=== PATIENT | female | born 1960 | race Caucasian/White ===

== ENCOUNTER → 2024-03-12 07:27 | Outpatient (REF) | payer BC, SELFPAY | LOC: WDC 07:27 | PROVIDERS: ATTENDING PHYSICIAN Nurse Practitioner Adult Health | DX: Z12.31 Encounter for screening mammogram for malignant neoplasm of breast (principal) | CPT/HCPCS: 77063; 77067 ==

== ENCOUNTER 2024-10-26 13:26 | Emergency (ER) | payer BC, SELFPAY ==
[2024-10-26 13:43] VITALS: BP 154/110
--- NOTE | 2024-10-26 15:29 | ED.MUSCINJ ---
HPI-Injury
General
Chief Complaint: Musculo-Skeletal Complaint
Source: patient
Exam Limitations: none
Time Seen by Provider: 10/26/24 15:05
History of Present Illness-Injury
Initial Injury comments:
64-year-old female eyrlw-pvil-edrbukcb presents complaining of left rib and left shoulder pain after falling while hiking. She fell directly on her arm. She is unable to move her arm. She also now notes pain to the left ribs. She denies
shortness of breath. She did not hit her head. No other complaints
Phy Exam
Physical Exam
Physical Exam:
General: Well-appearing female no acute respiratory distress HEENT: Normocephalic atraumatic
Heart: Regular rate and rhythm no murmurs
Lungs: Clear no wheeze
Musculoskeletal exam: The patient's left shoulder is tender to palpation. No deformity she is slightly swollen the elbow is nontender. She is tender over the left ribs
Extremities: No cyanosis
Injury Course
Orders/Labs/Results
Orders:
Orders
10/26/24 13:47
CR Shoulder, Trauma - Left Urgent
Comment:
Reason For Exam: fall, left shoulder/left upper arm pain
Humerus, Left 2 Views [CR Humerus - Left Min 2 Views*] Urgent
Comment:
Reason For Exam: fall, left shoulder/left upper arm pain
10/26/24 15:24
Acetaminophen [Tylenol] 1,000 mg PO NOW STA
CR Ribs-left 3 Vw W/pa Chest Urgent
Comment:
Reason For Exam: fall, left rib pain
MDM/Problems Addressed
Differential Diagnosis Includes:
Left shoulder and left rib pain after a fall. Consider fracture versus dislocation versus pneumothorax
I personally visualized x-rays of the left humerus and shoulder which demonstrate a fracture of the proximal humerus of the surgical neck and greater tuberosity. There is no dislocation. A sling will be provided. Tylenol ordered. X-rays of the
ribs are pending
*Critical Care Note
Total Time (30-74mins, 75-104mins- exclusive of procedures): Not Applicable
Update Note
Update Note:
Left rib series personally visualized no obvious acute fracture or pneumothorax. Patient given a sling for her left shoulder fracture. Advise follow-up with orthopedics
ED Attending Note
-
Portions of this chart may have been created with voice recognition software.� Occasional wrong word or��sound alike� substitutions may have occurred due to the inherent limitations of voice recognition software.
Discharge Plan
Departure
Patient Disposition: Home (Routine Discharge)
Date of Disposition: 10/26/24
Time of Disposition: 17:51
Patient with high blood pressure during this ER visit?: No
Discharge Problem:
Fracture of proximal end of humerus
Instructions: Muscle and Bone Pain (DC)
Prescriptions:
No Action
organ concentrates [Adrenal] 80 MG capsule
80 mg PO DAILY
red yeast rice 600 MG capsule
600 mg PO DAILY
Referrals:
Juliana Dalal MD [Family Provider] -
Reinaldo Mack MD [Active] -
Activity Restrictions/Additional Instructions:
Use sling for support. Continue with naproxen or Tylenol for pain. Follow-up with orthopedics for further evaluation
Interventions
Interventions:
*Risk Screen - Suicide Last Done: 10/26/24 14:53
*General Assessment Last Done: 10/26/24 14:53
*Neglect/Abuse Screening Last Done: 10/26/24 14:53
ED- Fall Risk Assessment Last Done: 10/26/24 14:53
*ED COVID-19 Vaccine History Last Done: 10/26/24 14:53
ED-Musculoskeletal Assessment Last Done: 10/26/24 14:53
Discharge Date and Time
Print Language: EQUATORIAL GUINEAN
[2024-10-26] MEDS: TYLENOL 1000 MG PO (15:31)
[2024-10-26 16:00] VITALS: BP 142/98
== END 2024-10-26 18:04 | disposition home or self-care (01) ==
LOC: EMR 13:26
PROVIDERS: EMERGENCY PHYSICIAN Emergency Medicine; FAMILY PHYSICIAN Student in an Organized Health Care Education/Training Program
DX: S42.295A Other nondisplaced fracture of upper end of left humerus, initial encounter for closed fracture (principal); R07.81 Pleurodynia; W19.XXXA Unspecified fall, initial encounter
CPT/HCPCS: 99284; 71101; 73030; 73060

== ENCOUNTER 2025-03-20 16:23 | Inpatient (IN) | payer BC, SELFPAY ==
[2025-03-20 12:03] VITALS: BP 155/88
--- NOTE | 2025-03-20 12:22 | ED.GENMED ---
History of Present Illness
General
Chief Complaint: Fall
Source: patient
Exam Limitations: none
Time Seen by Provider: 03/20/25 12:07
History of Present Illness
History of Present Illness:
64yoF with a history of hypothyroidism presenting with her for evaluation after a fall about an hour ago. Patient was at work and was making a phone call in the parking lot. She reports tripping over her feet and landing on her left hip.
There was no head strike or LOC. She was able to get up after the fall. She is presenting with pain in her left hip which feels like a 'charley horse.' She sustained some abrasions to the L elbow and L knee during the fall. Tetanus vaccine is
reportedly up to date.
Phy Exam
General Physical Exam
General Presentation: well appearing and no apparent distress
General age: appears stated age
General Skin: warm and dry
General Habitus: normal
General Mental: alert
ENT Exam
ENT Exam: normocephalic
Pulmonary Exam
Pulmonary Exam: no respiratory distress
Neurological Exam
Neurological Exam: alert
[place] Coma Scale
Eye Opening: Spontaneous
Verbal Response: Oriented
Motor Response: Obeys Commands
GCS Total Score: 15
Musculoskeletal Exam
Musculoskeletal Exam: other (L hip: Normal to inspection. No deformity, swelling, ecchymosis. No tenderness to palpation of the joint. Able to flex completely. Extension elicits pain. 2+ DP pulse and sensation intact.)
Skin Exam
Skin Exam: normal color, warm/dry and other (Abrasions to L elbow and L knee)
Psychiatric Exam
Psychiatric Exam: normal mood/affect
Course
Orders/Labs/Results
Orders:
Orders
03/20/25 12:20
CR Femur - Left Min 2 Vw Urgent
Comment:
Reason For Exam: L hip pain, fall
Pelvis, 1 or 2 Views CR [CR Pelvis - 1 Or 2 Views ] Urgent
Comment:
Reason For Exam: L hip pain, fall
03/20/25 14:36
Complete Blood Count/With Diff Urgent
Comprehensive Metabolic Panel Urgent
03/20/25 15:06
CT Pelvis W/o Iv Contrast Urgent
Comment:
Reason For Exam: L hip fracture, ortho request
03/20/25 15:15
ECG [Electrocardiogram (*1)] Urgent
Reason for Study: PreOp
03/20/25 15:34
Admit/Transfer Patient As Directed
Co-Sign Provider:
Level of Care: Inpatient admission
Assign to:: Medical/Surgical
Physician / Group: Rylee
Diagnosis: Left Hip Fracture
Reason for Hospitalization: Hip Fracture
Expected length of stay greater than two midnights?: Yes
ELOS- Estimated Length of Stay in days: 3
I certify the patient meets the requirements for IP care: Yes
PRN Pain Medication Management As Directed
May give lesser potent ordered pain med per pt: Yes
preference::
Protocol:: Medication orders for pain may be administered in a
manner that supports deferring to patient preference
when the pt is:
- Requesting an ordered lesser potent pain medication.
Least to most potent pain medications are defined
as: acetaminophen < NSAID < tramadol < opioids
(morphine, oxycodone, hydromorphone).
- Requesting a lesser dose of the same medication IF
ORDERED.
- Requesting a less intrusive route of administration
if both routes are prescribed by the provider (PO <
IV).
03/20/25 15:36
Code Status As Directed
Resuscitation Status: Full Code
Abnormal Lab Results
03/20/25
14:36
WBC 11.1 H 10^3/uL
(4.8-10.8)
Absolute Neuts (auto) 9.0 H 10^3/uL
(1.4-6.5)
Neutrophils % 80.9 H %
(42.2-75.2)
Lymphocytes % 13.5 L %
(20.5-51.1)
03/20/25 14:36
03/20/25 14:36
Vital Signs
Initial and Last Documented VS:
Initial Vital Signs
Temp Pulse Resp BP Pulse Ox
98.4 F 78 18 155/88 100
03/20/25 12:03 03/20/25 12:03 03/20/25 12:03 03/20/25 12:03 03/20/25 12:03
Last Documented Vital Signs
Temp Pulse Resp BP Pulse Ox
98.4 F 78 18 155/88 100
03/20/25 12:03 03/20/25 12:03 03/20/25 12:03 03/20/25 12:03 03/20/25 12:03
MDM/Problems Addressed
Differential Diagnosis Includes:
64yoF here with L hip pain after a mechanical fall. No deformity or swelling on exam. ROM is preserved. LLE is neurovascularly intact. Differential diagnosis includes: soft tissue injury/contusion, fracture, dislocation
X-rays of pelvis and L femur obtained. Imaging reveals a subcapital proximal left femur fracture. Orthopedics notified and patient admitted to the hospitalist service for further management.
*Critical Care Note
Total Time (30-74mins, 75-104mins- exclusive of procedures): Not Applicable
ED Attending Note
-
Portions of this chart may have been created with voice recognition software.� Occasional wrong word or��sound alike� substitutions may have occurred due to the inherent limitations of voice recognition software.
Discharge Plan
Departure
Patient Disposition: Admit
Date of Disposition: 03/20/25
Time of Disposition: 15:07
Presentation/result/management discussed w/ accepting MD/DO: Hospitalist
Discharge Problem:
Closed fracture of left hip
Prescriptions:
No Action
Metamucil Packet
1 packet PO DAILYPRN PRN (Reason: constipation)
omeprazole 40 mg Capsule,Delayed Release(Dr/Ec)
40 mg PO HS
levothyroxine [Synthroid] 100 mcg Tablet
100 mcg PO DAILY
alprazolam [Xanax] 0.25 mg Tablet
0.25 mg PO BIDPRN PRN (Reason: anxiety)
Glucosamine Chondroitin 550-30-1 mg Capsule
1 cap PO DAILY
Referrals:
Juliana Dalal MD [Family Provider] -
Interventions
Interventions:
*Risk Screen - Suicide Last Done: 03/20/25 12:03
*General Assessment Last Done: 03/20/25 12:03
*Neglect/Abuse Screening Last Done: 03/20/25 12:03
*ED- Fall Risk Assessment Last Done: 03/20/25 12:20
*ED COVID-19 Vaccine History Last Done: 03/20/25 12:20
ED-Musculoskeletal Assessment Last Done: 03/20/25 12:20
ED- Neurological Assessment Last Done: 03/20/25 12:20
ED-Skin Assessment Last Done: 03/20/25 12:20
Discharge Date and Time
Print Language: PALESTINIAN
[2025-03-20 14:50] LABS: % Basophils 0.4 % (0-2); % Eosinophils 0.1 % (0-6); % Immature Granulocytes 0.3 % (0-0.5); % Lymphocytes 13.5 % (20.5-51.1); % Monocytes 4.8 % (1.7-9.3); % Neutrophils 80.9 % (42.2-75.2); Absolute Lymphocytes 1.5 10^3/uL (1.2-3.4); Absolute Monocytes 0.5 10^3/uL (0.1-0.6); Hematocrit 42.6 % (37.0-47.0); Hemoglobin 14.6 g/dL (12.0-16.0); Mean Corp Hgb Conc. 34.3 g/dL (33.0-37.0); Mean Corpuscular Volume 87.5 fL (81.0-99.0); Nucleated Red Blood Cells % 0 %; Platelet Count 216 10^3/uL (130-400); Red Blood Cell Count 4.87 10^6/uL (4.20-5.40); Red Cell Dist. Width 12.6 % (11.5-14.5); White Blood Cell Count 11.1 10^3/uL (4.8-10.8)
[2025-03-20 15:01] LABS: ALT (SGPT) 31 U/L (0-35); AST (SGOT) 32 U/L (14-36); Albumin 4.4 g/dl (3.5-5.0); Alkaline Phosphatase 82 U/L (38-126); Blood Urea Nitrogen 13 mg/dl (7-17); Carbon Dioxide 27 mmol/L (22-30); Chloride 107 mmol/L (98-107); Glucose 89 mg/dl (70-99); Potassium 4.3 mmol/L (3.5-5.1); Sodium 141 mmol/L (135-145); Total Bilirubin 1.1 mg/dl (0.2-1.3); Total Protein 7.6 g/dl (6.3-8.2); eGFR > 60.00
--- NOTE | 2025-03-20 15:15 | HPS.HSE ---
Family Physician
-
Family Physician: Juliana Dlaal MD
Chief Complaint
-
Fall with Left Hip Pain
History of Present Illness
Patient is a 64 y/o female past medical history of hypothyroidism who presents with left hip pain following a fall. Patient reports back in October she tripped on a root while walking and fell landing on her left side. At that time she had severe
left shoulder pain and was found to have a proximal left humerus fracture which was managed conservatively. Patient reports she enjoys walking but since resuming her spring walking program she has been experiencing left hip pain. Today while
walking in the parking lot she states her leg just gave out and she fell. She denies chest pain, palpitations, shortness of breath or dizziness prior to the fall; and states she did not hit her head.
Medical History
Past Medical History
Past Medical History: Reports Other
Additional Past Medical History:
Hypothyroidism
GERD
Past Surgical History: Reports Other
Social History
Tobacco: Non-smoker
Alcohol: Occasional
Family History
Family History: Not pertinent
Allergies / Home Medications
Allergies reflects when Allergies were last updated in [employer].
Home Medications with original date entered in [employer]
Allergy/Medication List:
Allergies
Allergy/AdvReac Type Severity Reaction Status Date / Time
No Known Allergies Allergy Verified 03/20/25 12:03
Home Medications
alprazolam 0.25 mg tablet (Xanax) 0.25 mg PO BIDPRN PRN anxiety 03/20/25
glucosamine sulf dipot chlr,msm,chond 550 mg-C 30 mg-el 1 mg capsule (Glucosamine Chondroitin) 1 cap PO DAILY 03/20/25
levothyroxine 100 mcg tablet (Synthroid) 100 mcg PO DAILY 03/20/25
omeprazole 40 mg capsule,delayed release 40 mg PO HS 03/20/25
psyllium 1 packet PO DAILYPRN PRN constipation 03/20/25
Review of Systems
-
A 12 point ROS was completed and negative except as noted: Yes
Respiratory: Denies Cough or Trouble Breathing
Cardiac: Denies Chest Pain or Palpitations
Physical Exam
Vital Signs
Vital Signs
Temp Pulse Resp BP Pulse Ox
98.4 F 78 18 155/88 100
03/20/25 12:03 03/20/25 12:03 03/20/25 12:03 03/20/25 12:03 03/20/25 12:03
Physical Exam
General: Comfortable and Conversant
HEENT: Anicteric and Moist mucous membranes
Respiratory: Clear and Non Labored Respirations
Cardiac: S1/S2 and Regular Rhythm
GI: Soft and Non Tender
Rectal: Deferred by Provider
Musculoskeletal: No Clubbing and No Cyanosis
Skin: Warm and Dry
Neuro: Awake, Oriented and Nonfocal/grossly intact
Psych: Calm
Laboratory Results
-
03/20/25 14:36
03/20/25 14:36
Laboratory Results
Total Bilirubin 1.1 mg/dl (0.2-1.3) 03/20/25 14:36
AST 32 U/L (14-36) 03/20/25 14:36
ALT 31 U/L (0-35) 03/20/25 14:36
Alkaline Phosphatase 82 U/L (38-126) 03/20/25 14:36
Data Reviewed
-
Diagnostic Radiology: Report Reviewed by me
Lab Data: Labs Reviewed by me
Impression/Plan
-
Left Hip Fracture
-Consult Orthopedics
-NPO after midnight for OR tomorrow
-Continue Tylenol for mild, Oxycodone for moderate, and Dilaudid for severe pain
Hypothyroidism
-Continue levothyroxine
GERD
-Continue Protonix
DVT Proph: SCDs
Code Status: Full Code
--- NOTE | 2025-03-20 15:59 | W.PN.UPDATE ---
Update Note
Progress Note Update
This is an addendum to H&P written by PATRICIA Basilio
I saw and examined the patient.
The SENIOR ELECTRONICS ENGINEER's note was reviewed and I agree with the note.
Comment:
Ms. Ruth Ann Gomez is a 64 yo woman with hx hypothyroidism, GERD, anxiety/depression, with fall on left side in October found to have humerus fracture treated conservatively, presents to the ER after a fall today resulting in left hip pain.
Triage VS: T 98.4, P 78, RR 18, BP 155/88, SpO2 100%
On exam patient awake, alert, in no distress; CV: S1, S2, RRR; chest clear, no LE swelling.
LABS: WBC 11.1, Hg 14.6, PLT 216, Na 141, K+ 4.3, Cl 107, CO2 27, Cr 0.7, Glucose 89, liver enzymes WNL
Femur X-Ray
IMPRESSION:
Fracture, neck, proximal left femur, as noted above.
Proximal Left Femur Fracture
-admit to med/surg
-NPO after MN for OR tomorrow
-patient medically optimized for surgery; benefits outweigh risks. She is active at baseline without recent reports of chest pain
-pain control
Hypothyroidism - ENDODONTIST Synthroid
GERD - ENDODONTIST PPI
Anxiety- ENDODONTIST Xanax PRN
DVT PPx SCD
FULL CODE
[2025-03-20 16:00] VITALS: BP 152/85
--- NOTE | 2025-03-20 16:03 | CON.ORTHO ---
Consultation
-
Date/Time Consultation Requested: 1500 03/20/2025
Date/Time Consultation Performed: 1600 03/20/2025
Requesting Provider: ED
Performing Provider: Jorge Sutherland
Reason for Consultation: L hip fraturec
Consultation - Orthopedics
History
Orthopedic Surgery Note
CC:
HPI:
PMH/PSH:
Medications:
Family History: Family history was reviewed. Noncontributory
Social history: Nonsmoker, no illicit drugs
Exam
General appearance: Pleasant. No acute distress.
Head: Normocephalic/atraumatic
Nose: No lesions or discharge.
Skin: No obvious rashes or open wounds
Lungs: No audible wheezing, no cough or sputum production
Musculoskeletal:
LLE:
skin intact without open wounds
fires ehl/fhl/ta/gs
sensation intact to light touch distally s/s/sp/dp/t
Toes wwp, 1+ DP
No tenderness over bony prominences or with passive joint ROM
RLE:
skin intact without open wounds
fires ehl/fhl/ta/gs
sensation intact to light touch distally s/s/sp/dp/t
Toes wwp, 1+ DP
No tenderness over bony prominences or with passive joint ROM
LUE:
skin intact without open wounds
fires r/u/m/ain/pin
sensation intact to light touch r/u/m
Fingers wwp, 1+ radial pulse
No tenderness over bony prominences or with passive joint ROM
RUE:
skin intact without open wounds
fires r/u/m/ain/pin
sensation intact to light touch r/u/m
Fingers wwp, 1+ radial pulse
No tenderness over bony prominences or with passive joint ROM
Imaging:
Xrays:
> 75 minutes was spent reviewing the clinical information, evaluating the patient, and formulating clinical plan.
Allergies / Home Medications
Allergy/AdvReac Type Severity Reaction Status Date / Time
No Known Allergies Allergy Verified 03/20/25 12:03
�Medication �Instructions �Recorded
alprazolam 0.25 mg tablet (Xanax) 0.25 mg PO BIDPRN PRN anxiety 03/20/25
glucosamine sulf dipot 1 cap PO DAILY 03/20/25
chlr,msm,chond 550 mg-C 30 mg-el
1 mg capsule (Glucosamine
Chondroitin)
levothyroxine 100 mcg tablet 100 mcg PO DAILY 03/20/25
(Synthroid)
omeprazole 40 mg capsule,delayed 40 mg PO HS 03/20/25
release
psyllium 1 packet PO DAILYPRN PRN 03/20/25
constipation
Vital Signs / Lab Results
Temp Pulse Resp BP Pulse Ox
98.4 F 78 18 155/88 100
03/20/25 12:03 03/20/25 12:03 03/20/25 12:03 03/20/25 12:03 03/20/25 12:03
03/20/25 14:36
03/20/25 14:36
[2025-03-20 17:11] LABS: Vitamin D, 25-OH*** 21.3 ng/mL (30-80)
[2025-03-20 18:20] VITALS: BP 133/80
--- NOTE | 2025-03-20 18:41 | PTCARENOTE ---
Addendum entered by Shelli Biggs RN 03/20/25 18:53:
Pt with positive sensation and movement to LLE, + palpable DP pulses B/L, warm to touch and + cap refill.
Original Note:
Pt arrived to 2S via stretcher, slid to bed with assistance from [facility] staff. Abrasion noted to L elbow, skin otherwise intact. Static air overlay in use. Pt instructed to ring for assistance, verbalized understanding. Bed locked and in the lowest
position, safety maintained. Oriented to room and call.
--- NOTE | 2025-03-20 18:53 | EDRN ---
Patient taken to room 2118 on stretcher by information technology data analyst.
[2025-03-20 18:55] VITALS: BP 131/74
--- NOTE | 2025-03-20 19:15 | PTCARENOTE ---
Pt Ruth Ann Gomez is a 64 yo woman arrived on 2S at 18:41 with PMH hypothyroidism, GERD, anxiety/depression, with fall on left side in October found to have humerus fracture treated conservatively, presents to the ER after a fall today resulting in
left hip painFemur X-Ray IMPRESSION: Fracture, neck, proximal left femur, admit to med/surg, NPO after midnight for surgery, [facility] 03/21 15:[address] Kimo Sutherland. Pt AOx3, reports pain with movement, denies need for pain mgmt at this time, bed
in a low position, call light in reach, care ongoing
[2025-03-20] MEDS: PROTONIX 40 MG PO (21:26)
[2025-03-20] MEDS: METAMUCIL, KONSYL 1 PACKET PO (21:26)
[2025-03-20] MEDS: ULTRAM 50 MG PO (22:25)
[2025-03-20 23:21] VITALS: BP 124/80
[2025-03-21] VITALS (8 sets, daily range): BP systolic 109–147; BP diastolic 64–94; BMI 27.1
[2025-03-21] MEDS: MELATONIN 5 MG PO ×2 (00:03→22:14)
[2025-03-21] MEDS: SYNTHROID 100 MCG PO (05:02)
[2025-03-21 06:41] LABS: Hematocrit 38.6 % (37.0-47.0); Hemoglobin 13.4 g/dL (12.0-16.0); Mean Corp Hgb Conc. 34.7 g/dL (33.0-37.0); Mean Corpuscular Volume 86.4 fL (81.0-99.0); Mean Platelet Volume 10.1 fL (7.4-10.4); Platelet Count 193 10^3/uL (130-400); Red Blood Cell Count 4.47 10^6/uL (4.20-5.40); Red Cell Dist. Width 12.5 % (11.5-14.5); White Blood Cell Count 6.2 10^3/uL (4.8-10.8)
[2025-03-21 07:08] LABS: Blood Urea Nitrogen 10 mg/dl (7-17); Calcium 9.5 mg/dl (8.4-10.2); Carbon Dioxide 26 mmol/L (22-30); Chloride 107 mmol/L (98-107); Estimated Creatinine Clearance 76 ml/min; Glucose 125 mg/dl (70-99); Potassium 4.3 mmol/L (3.5-5.1); Sodium 138 mmol/L (135-145); eGFR > 60.00
--- NOTE | 2025-03-21 09:46 | W.PN.UPDATE ---
Update Note
Progress Note Update
I evaluated the patient at bedside. She reports she had increased discomfort overnight. We discussed that I reviewed the CT scan which shows a minimally displaced valgus impacted left femoral neck fracture. No signs of comminution. We discussed
treatment options including left hip CRPP versus left total hip arthroplasty. Based on the minimal displacement and the otherwise well-preserved hip joint space, we discussed CRPP today. She will continue to remain NPO. After discussion with the
OR, likely timing for surgery would be around 3:30 PM. Consent was signed at bedside.
--- NOTE | 2025-03-21 11:08 | CM ---
Reviewed the chart notes and spoke with the patient and her spouse at the bedside. The patient resides with her spouse in a two story home with three steps to enter through rear of home. The patient reports no DME/VN/SNF in the past. The patient
confirmed her [facility] of choice [facility]. The patient anticipates going to the OR this afternoon for hip fx repair. CM continues to be available to patient/family and is monitoring medical plan for needs at discharge.
Plan: Discharge plans will depend on the patient's progress.
--- NOTE | 2025-03-21 12:43 | W.PN.HOSP.TC ---
Today's Communication/Plan
-
OR today
Assessment / Plan
Assessment / Plan
Physical Exam
General: Comfortable and Conversant
HEENT: Anicteric and Moist mucous membranes
Respiratory: Clear and Non Labored Respirations
Cardiac: S1/S2 and Regular Rhythm
GI: Soft and Non Tender
Rectal: Deferred by Provider
Musculoskeletal: No Clubbing and No Cyanosis
Skin: Warm and Dry
Neuro: Awake, Oriented and Nonfocal/grossly intact
Psych: Calm
Left Hip Fracture
-Consult Orthopedics
-NPO for OR
-Continue Tylenol for mild, Oxycodone for moderate, and Dilaudid for severe pain
Hypothyroidism
-Continue levothyroxine
GERD
-Continue Protonix
DVT Proph: SCDs
Code Status: Full Code
Anticipated Discharge: 24 - 48 hours
Subjective/Interval History
-
Date of Service: March 21, 2025
no acute events
Objective Data
-
Labs:
Laboratory Results
03/21/25
06:28
WBC 6.2
Hgb 13.4
Hct 38.6
Plt Count 193
Sodium 138
Potassium 4.3
Chloride 107
Carbon Dioxide 26
BUN 10
Creatinine 0.7
Glucose 125 H
Calcium 9.5
Vital Signs:
Vital Signs
Temp Pulse Resp BP Pulse Ox
98.0 F 84 18 109/67 99
03/21/25 07:55 03/21/25 07:55 03/21/25 07:55 03/21/25 07:55 03/21/25 07:55
I&O
03/20/25 03/21/25 03/22/25
06:59 06:59 06:59
Intake Total 1200 / 1200
Output Total 300 / 300
Balance 900 / 900
Review of Systems
-
History Source: Patient
All other systems: Not reviewed unless documented
Data Reviewed
-
Diagnostic Radiology: Report Reviewed by me
CT Scan: Report Reviewed by me
Labs: Labs Reviewed by me
--- NOTE | 2025-03-21 17:36 | OR.RPT ---
Operative Report
Operative Report
Orthopedic Surgery Operative Note
DATE OF OPERATION: 03/21/2025
PREOPERATIVE DIAGNOSES: Left valgus impacted femoral neck fracture
POSTOPERATIVE DIAGNOSES: Same
OPERATION PERFORMED: Left femoal neck percutaneous pinning
SURGEON: Kimo Sutherland MD
ASSISTANTS: NA
ANESTHESIA: General
COMPLICATIONS: None
ESTIMATED BLOOD LOSS: 40mL
IMPLANTS: [place] 6.5mm cannculated screws, partially threaded, x2; fully threaded, x1
DRAINS: None
INDICATIONS FOR PROCEDURE: 64-year-old female presented to the emergency department after acute on chronic left hip pain. X-rays showed valgus impacted left femoral neck fracture with minimal displacement. I discussed with the patient treatment
options including arthroplasty versus percutaneous pinning. We discussed risks and benefits of each treatment option. We discussed that nonoperative treatment would have high risk of fracture nonunion and prolonged nonweight bearing. We discussed
the risks, benefits, and alternatives of various treatment options. Shared decision was to proceed with surgical treatment. The patient understood the risks including, but not limited to, bleeding, infection, failure to relieve pain, more pain than
preop, damage to blood vessels and nerves, need for reoperation, mechanical failure of the implants, wound healing problems, stiffness, instability, blood clot, pulmonary embolism, myocardial infarction, pneumonia, arrhythmia, CVA, and . The
patient accepted these risks and wished to proceed with surgery. All questions were answered and informed consent was obtained.
PROCEDURE IN DETAIL:
The patient was identified in the preoperative holding area. The operative limb was identified as the operative site and marked for safety. The patient was transferred to the operating room and transferred to the operative table. General anesthesia
was performed. IV antibiotics were given. All bony prominences were well-padded. The operative limb was prepped and draped in the usual sterile fashion.
Fluoroscopy was used to confirm the fracture had not displaced. The guidepin was localized under fluoroscopy on the posterior inferior aspect of the femoral neck. A 4 cm incision was made. Dissection was carried down to the IT band. The IT band
was split in line and blunt dissection was carried down to bone through the vastus lateralis. The guidepin was localized under fluoroscopy on the posterior inferior aspect of the femoral neck. The pin was advanced and checked on both AP and
lateral to confirm appropriate trajectory. The pin was advanced until it was in subchondral bone. A second pin was placed in the similar fashion the posterior superior quadrant. A third pin was placed under fluoroscopy in the anterior superior
aspect of the femoral neck. The length of the pins were measured. The outer cortex was drilled. The screws were advanced on power and then by hand with care to make sure no soft tissue was entrapped. The screws had good bony purchase. Once all
3 screws were placed, the hip was taken through range of motion to ensure there was no intra-articular placement. The pins were removed.
The incision was thoroughly irrigated with sterile saline. The fascia was closed with 0 PDS. The deep dermal tissue was closed with 2-0 PDS in a running fashion. 3-0 Monocryl was used for the subcuticular layer. Dermabond was applied. A mepalex
dressing was applied. The patient awoke from anesthesia without any difficulties. The sponge and instrument counts were correct at the end of the case. I was present and participated in the entire procedure.
Post Operative Plan:
- Pain control
- PT/OT
- DVT prophylaxis: ASA x4 weeks
- ABX: Ancef x2 doses
- WB Status: WBAT with walker 4 weeks - no open chain strengthening
[2025-03-21] MEDS: DEMEROL 12.5 MG IV ×2 (17:50→18:04)
[2025-03-21] MEDS: BENADRYL 25 MG IV (20:00)
[2025-03-21] MEDS: CELEBREX 200 MG PO (20:01)
[2025-03-21] MEDS: COLACE 100 MG PO (20:01)
[2025-03-21] MEDS: ASPIRIN 325 MG PO (20:01)
[2025-03-21] MEDS: METAMUCIL, KONSYL PO (22:14)
[2025-03-21] MEDS: PROTONIX 40 MG PO (22:14)
[2025-03-22] MEDS: ANCEF 5 IV ×2 (00:22→09:43)
[2025-03-22] MEDS: SYNTHROID 100 MCG PO (05:52)
[2025-03-22 06:14] LABS: Hematocrit 35.4 % (37.0-47.0); Hemoglobin 12.5 g/dL (12.0-16.0); Mean Corp Hgb Conc. 35.3 g/dL (33.0-37.0); Mean Corpuscular Hgb 30.6 pg (27.0-31.0); Mean Corpuscular Volume 86.6 fL (81.0-99.0); Mean Platelet Volume 10.1 fL (7.4-10.4); Platelet Count 183 10^3/uL (130-400); Red Blood Cell Count 4.09 10^6/uL (4.20-5.40); Red Cell Dist. Width 12.3 % (11.5-14.5); White Blood Cell Count 7.8 10^3/uL (4.8-10.8)
[2025-03-22 06:42] LABS: ALT (SGPT) 19 U/L (0-35); AST (SGOT) 23 U/L (14-36); Albumin 3.8 g/dl (3.5-5.0); Alkaline Phosphatase 56 U/L (38-126); Blood Urea Nitrogen 16 mg/dl (7-17); Calcium 8.7 mg/dl (8.4-10.2); Carbon Dioxide 24 mmol/L (22-30); Chloride 105 mmol/L (98-107); Estimated Creatinine Clearance 76 ml/min; Glucose 127 mg/dl (70-99); Potassium 4.7 mmol/L (3.5-5.1); Sodium 137 mmol/L (135-145); Total Bilirubin 0.8 mg/dl (0.2-1.3); Total Protein 6.5 g/dl (6.3-8.2); eGFR > 60.00
[2025-03-22 07:45] VITALS: BP 163/75
--- NOTE | 2025-03-22 08:14 | W.PN.ORTHO ---
Today's Communication / Plan
-
64 yo F POD1 left hip CRPP under the direction of Dr. Sutherland
--Weight bearing as tolerated to LLE with walker. We appreciate the assistance of PT/OT while patient admitted.
--Recommend ASA 325 mg daily x4 weeks for DVT ppx.
--Hgb 12.5 this AM. Continue to monitor.
--Pain control prn. Ice and elevation for edema control.
--Dressing to remain in place until 2 weeks post-op. We will see patient in the office at 2 weeks post-op for wound check and repeat x-rays.
--Case management consult for dc planning. Patient preference is for home.
--Orthopedics will continue to follow along.
Assessment
.
Distal Motor Intact: Yes
Dressing:
Clean, dry and intact.
Plan
.
Surgery / Date: Left hip CRPP, [place], 03/21/2025
DVT Prophylaxis: Aspirin
Activity:
Out of bed.
PT/OT
Subjective
.
.:
Ms. Gomez is POD1 following her left hip CRPP performed by Dr. Sutherland. She is resting comfortably in bed, and states her pain is well controlled at present. She was able to get up and ambulate a bit this morning.
Vital Signs and Labs
.
Vital Signs and Labs:
Lab Results
03/22/25 05:55
03/22/25 05:54
Temp Pulse Resp BP Pulse Ox
98.1 F 68 16 110/69 99
03/21/25 23:52 03/21/25 23:52 03/21/25 23:52 03/21/25 23:52 03/21/25 23:52
Physical Exam
-
Directed exam of the left lower extremity reveals Mepilex dressing in place. Expected post-operative edema. No tenderness to palpation about the hip. Thigh soft and compressible. Calf soft and nontender. Patient able to wiggle toes, plantar and
dorsiflex ankle. NVID.
[2025-03-22] MEDS: ASPIRIN 325 MG PO (09:42)
[2025-03-22] MEDS: COLACE 100 MG PO ×2 (09:42→20:34)
[2025-03-22] MEDS: CELEBREX 200 MG PO ×2 (09:42→20:34)
[2025-03-22 10:50] VITALS: BP 134/79
--- NOTE | 2025-03-22 12:42 | W.PN.HOSP.TC ---
Today's Communication/Plan
-
ASA 325mg daily
Assessment / Plan
Assessment / Plan
Physical Exam
General: Comfortable and Conversant
HEENT: Anicteric and Moist mucous membranes
Respiratory: Clear and Non Labored Respirations
Cardiac: S1/S2 and Regular Rhythm
GI: Soft and Non Tender
Rectal: Deferred by Provider
Musculoskeletal: No Clubbing and No Cyanosis
Skin: Warm and Dry
Neuro: Awake, Oriented and Nonfocal/grossly intact
Psych: Calm
Left Hip Fracture
-POD 1 left hip CRPP
--Weight bearing as tolerated to LLE with walker.
--Recommend ASA 325 mg daily x4 weeks for DVT ppx.
--monitor hgb on Asa 325mg
--Pain control prn. Ice and elevation for edema control.
--Dressing to remain in place until 2 weeks post-op. F/u with ortho in office at 2 weeks post-op for wound check and repeat x-rays.
Hypothyroidism
-Continue levothyroxine
GERD
-Continue Protonix
DVT Proph: ASA 325mg
Code Status: Full Code
Anticipated Discharge: Within 24 hours
Subjective/Interval History
-
Date of Service: March 22, 2025
no acute events overnight
Objective Data
-
Labs:
Laboratory Results
03/22/25 03/22/25
05:54 05:55
WBC 7.8
Hgb 12.5
Hct 35.4 L
Plt Count 183
Sodium 137
Potassium 4.7
Chloride 105
Carbon Dioxide 24
BUN 16
Creatinine 0.7
Glucose 127 H
Calcium 8.7
Total Bilirubin 0.8
AST 23
ALT 19
Alkaline Phosphatase 56
Vital Signs:
Vital Signs
Temp Pulse Resp BP Pulse Ox
98.2 F 82 16 134/79 97
03/22/25 10:50 03/22/25 10:50 03/22/25 10:50 03/22/25 10:50 03/22/25 10:50
I&O
03/21/25 03/22/25 03/23/25
06:59 06:59 06:59
Intake Total 1200 / 1200 200 / 200
Output Total 300 / 300
Balance 900 / 900 200 / 200
Review of Systems
-
History Source: Patient
All other systems: Not reviewed unless documented
Data Reviewed
-
Diagnostic Radiology: Report Reviewed by me
CT Scan: Report Reviewed by me
Labs: Labs Reviewed by me
[2025-03-22 15:25] VITALS: BP 130/75
[2025-03-22] MEDS: METAMUCIL, KONSYL PO (20:35)
[2025-03-22] MEDS: PROTONIX 40 MG PO (20:35)
[2025-03-22] MEDS: MELATONIN 5 MG PO (22:31)
[2025-03-22] MEDS: ROXICODONE 5 MG PO (22:31)
[2025-03-22 23:00] VITALS: BP 125/73
[2025-03-23] MEDS: LIDOCAINE 4% PATCH 1 PATCH TOPICAL (04:33)
[2025-03-23] MEDS: SYNTHROID 100 MCG PO (05:05)
[2025-03-23 06:06] LABS: Hemoglobin 12.6 g/dL (12.0-16.0); Mean Corpuscular Hgb 30.5 pg (27.0-31.0); Mean Corpuscular Volume 87.2 fL (81.0-99.0); Mean Platelet Volume 10.8 fL (7.4-10.4); Platelet Count 196 10^3/uL (130-400); Red Blood Cell Count 4.13 10^6/uL (4.20-5.40); Red Cell Dist. Width 12.5 % (11.5-14.5); White Blood Cell Count 6.8 10^3/uL (4.8-10.8)
[2025-03-23 06:36] LABS: ALT (SGPT) 17 U/L (0-35); AST (SGOT) 31 U/L (14-36); Albumin 4.3 g/dl (3.5-5.0); Alkaline Phosphatase 64 U/L (38-126); Blood Urea Nitrogen 17 mg/dl (7-17); Calcium 9.1 mg/dl (8.4-10.2); Carbon Dioxide 27 mmol/L (22-30); Chloride 105 mmol/L (98-107); Estimated Creatinine Clearance 76 ml/min; Glucose 87 mg/dl (70-99); Potassium 4.4 mmol/L (3.5-5.1); Sodium 140 mmol/L (135-145); Total Bilirubin 0.9 mg/dl (0.2-1.3); eGFR > 60.00
[2025-03-23 07:20] VITALS: BP 131/78
--- NOTE | 2025-03-23 08:31 | W.PN.UPDATE ---
Update Note
Progress Note Update
Ms. Gomez is POD2 following her left hip CRPP performed by Dr. Sutherland. She is resting comfortably in bed this morning. Unfortunately, yesterday she reports she developed nerve type pain about her mid-thigh. She reports 'zinging' pain when
ambulating. She denies any relief with oxycodone or Celebrex. She reports her hip is otherwise feeling well.
Directed exam of the left lower extremity reveals Mepilex dressing in place. Expected post-operative edema. No tenderness to palpation about the hip. Thigh soft and compressible. Calf soft and nontender. Patient able to wiggle toes, plantar and
dorsiflex ankle. NVID.
Hgb 12.6 this AM.
64 yo F POD2 left hip CRPP under the direction of Dr. Sutherland
--Weight bearing as tolerated to LLE with walker. We appreciate the assistance of PT/OT while patient admitted.
--Recommend ASA 325 mg daily x4 weeks for DVT ppx.
--Hgb 12.6 this AM. Continue to monitor.
--Pain control prn. Ice and elevation for edema control.
--Dressing to remain in place until 2 weeks post-op. We will see patient in the office at 2 weeks post-op for wound check and repeat x-rays.
--Case management consult for dc planning. Patient preference is for home.
--Patient is stable post-operatively from an orthopedic standpoint. Orthopedics will sign off for now. Please reach out with any additional orthopedic questions or concerns.
[2025-03-23] MEDS: COLACE 100 MG PO (09:57)
[2025-03-23] MEDS: ROXICODONE 5 MG PO (09:57)
[2025-03-23] MEDS: CELEBREX 200 MG PO (09:59)
[2025-03-23] MEDS: ASPIRIN 325 MG PO (09:59)
--- NOTE | 2025-03-23 11:36 | CM ---
Reviewed the chart notes and spoke with the patient at the bedside. The patient is being discharged to home today. Spouse will provide transportation. Discussed possible need for VN. Patient selected VN. continues to be available to
patient/family and is monitoring medical plan for needs at discharge.
Plan: Discharge today to home with VN services.
--- NOTE | 2025-03-23 11:53 | W.PN.HOSP.TC ---
Addendum entered and electronically signed by Ye Locke MD 03/23/25 14:57:
[id number]
Original Note:
Today's Communication/Plan
-
--Weight bearing as tolerated to LLE with walker.
--Recommend ASA 325 mg daily x4 weeks for DVT ppx.
--Pain control prn. Ice and elevation for edema control.
--Dressing to remain in place until 2 weeks post-op. Follow up in Orthopedics office at 2 weeks post-op for wound check and repeat x-rays.
--F/u CBC in 3 days
Assessment / Plan
Assessment / Plan
Physical Exam
General: Comfortable and Conversant
HEENT: Anicteric and Moist mucous membranes
Respiratory: Clear and Non Labored Respirations
Cardiac: S1/S2 and Regular Rhythm
GI: Soft and Non Tender
Rectal: Deferred by Provider
Musculoskeletal: No Clubbing and No Cyanosis
Skin: Warm and Dry
Neuro: Awake, Oriented and Nonfocal/grossly intact
Psych: Calm
Left Hip Fracture
-POD 2 left hip CRPP
--Weight bearing as tolerated to LLE with walker.
--Recommend ASA 325 mg daily x4 weeks for DVT ppx.
--monitor hgb on Asa 325mg
--Pain control prn. Ice and elevation for edema control.
--Dressing to remain in place until 2 weeks post-op. F/u with ortho in office at 2 weeks post-op for wound check and repeat x-rays.
--F/u CBC outpt
Hypothyroidism
-Continue levothyroxine
GERD
-Continue Protonix
DVT Proph: ASA 325mg
Code Status: Full Code
More than 30 minutes spent in discharge including
Final examination of the patient
Summarizing hospital stay
Instructions for continuing care to all relevant caregivers
Preparation of discharge records, prescriptions, and referral forms
Total time spent (in minutes): 36
Anticipated Discharge: Today
Subjective/Interval History
-
Date of Service: March 23, 2025
no acute events
Objective Data
-
Labs:
Laboratory Results
03/23/25
05:04
WBC 6.8
Hgb 12.6
Hct 36.0 L
Plt Count 196
Sodium 140
Potassium 4.4
Chloride 105
Carbon Dioxide 27
BUN 17
Creatinine 0.7
Glucose 87
Calcium 9.1
Total Bilirubin 0.9
AST 31
ALT 17
Alkaline Phosphatase 64
Vital Signs:
Vital Signs
Temp Pulse Resp BP Pulse Ox
98.3 F 75 16 131/78 98
03/23/25 07:20 03/23/25 07:20 03/23/25 07:20 03/23/25 07:20 03/23/25 07:20
I&O
03/22/25 03/23/25 03/24/25
06:59 06:59 06:59
Intake Total 200 / 200 1616 / 1616 180 / 180
Balance 200 / 200 1616 / 1616 180 / 180
Review of Systems
-
History Source: Patient
All other systems: Not reviewed unless documented
Data Reviewed
-
Diagnostic Radiology: Report Reviewed by me
CT Scan: Report Reviewed by me
Labs: Labs Reviewed by me
--- NOTE | 2025-03-23 11:54 | W.DS.TRANS ---
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
-
Discharge Instructions:
Discharge Diagnosis/Procedures Left Hip Fracture
-POD 1 left hip CRPP
Activity As tolerated
Blood Work cbc and bmp in 3-5 days
Instructions:
Stand-Alone Forms:
Changes to Home Medications: Yes
Discharge Medications:
DC Medications w/original date entered in [employer]
alprazolam 0.25 mg tablet (Xanax) 0.25 mg PO BIDPRN PRN anxiety 03/20/25
glucosamine sulf dipot chlr,msm,chond 550 mg-C 30 mg-el 1 mg capsule (Glucosamine Chondroitin) 1 cap PO DAILY Supplement 03/20/25
levothyroxine 100 mcg tablet (Synthroid) 100 mcg PO DAILY Thyroid 03/20/25
omeprazole 40 mg capsule,delayed release 40 mg PO HS Gastrointestinal Issue 03/20/25
psyllium 1 packet PO DAILYPRN PRN constipation 03/20/25
aspirin 325 mg tablet 325 mg PO DAILY 30 days #30 tabs 03/23/25
Home Medication Changes
aspirin 325 mg tablet 325 mg PO DAILY 30 days #30 tabs 03/23/25
Pending Results: No
== END 2025-03-23 13:48 | disposition home health service (06) | DRG 482 ==
LOC: 2 SOUTH 16:23
PROVIDERS: Physician Assistant; Physician Assistant Medical; ADMITTING PHYSICIAN Student in an Organized Health Care Education/Training Program; ATTENDING PHYSICIAN Internal Medicine; CONSULT PHYSICIAN Orthopaedic Surgery; EMERGENCY PHYSICIAN Emergency Medicine; FAMILY PHYSICIAN Student in an Organized Health Care Education/Training Program
PROC: 0QH734Z Insertion of Internal Fixation Device into Left Upper Femur, Percutaneous Approach (ICD-10-PCS; 2025-03-21)
DX: S72.012A Unspecified intracapsular fracture of left femur, initial encounter for closed fracture (principal); W01.0XXA Fall on same level from slipping, tripping and stumbling without subsequent striking against object, initial encounter; E03.9 Hypothyroidism, unspecified; K21.9 Gastro-esophageal reflux disease without esophagitis
CPT/HCPCS: 72170; 72192; 73502; 73552; 76000; 80048; 80053; 82306; 85025; 85027; 93005; 97116; 97162; 97166; 97530; 97535; 99285

== ENCOUNTER → 2025-04-02 13:16 | Outpatient (REF) | payer BC, SELFPAY | LOC: WDC 13:16 | PROVIDERS: ATTENDING PHYSICIAN Student in an Organized Health Care Education/Training Program | DX: Z12.31 Encounter for screening mammogram for malignant neoplasm of breast (principal) | CPT/HCPCS: 77063; 77067 ==

== ENCOUNTER → 2025-06-30 08:53 | Outpatient (REF) | payer BC, SELFPAY | LOC: RAD 08:53 | PROVIDERS: ATTENDING PHYSICIAN Student in an Organized Health Care Education/Training Program | DX: Z87.81 Personal history of (healed) traumatic fracture (principal); Z78.0 Asymptomatic menopausal state | CPT/HCPCS: 77080 ==

== ENCOUNTER 2025-07-25 06:22 | Day surgery (SDC) | payer BC, SELFPAY | END 2025-07-25 12:14 | disposition home or self-care (01) | LOC: GI 06:22 | PROVIDERS: ATTENDING PHYSICIAN Internal Medicine Gastroenterology; FAMILY PHYSICIAN Student in an Organized Health Care Education/Training Program | DX: Z12.11 Encounter for screening for malignant neoplasm of colon (principal); K64.9 Unspecified hemorrhoids; D12.3 Benign neoplasm of transverse colon; Z80.0 Family history of malignant neoplasm of digestive organs | CPT/HCPCS: 45380; 88305 ==